=== PATIENT | female | born 1950 | race Caucasian/White ===

== ENCOUNTER 2017-06-28 17:38 | Observation (INO) ==
--- NOTE | 2017-06-28 17:43 | Emergency Department Note ---
Disposition Clinical Impression: Recurrent falls Altered mental status Qualifiers: Altered mental status type: transient alteration of awareness Qualified Code(s) : R40.4 - Transient alteration of awareness TIA (transient ischemic attack) Qualifiers: Transient cerebral ischemia type: other Qualified Code(s): G45.8 - Other transient cerebral ischemic attacks and related syndromes Disposition: Admitted As Inpatient Condition: Fair Referrals: Amy Sandoval WAREHOUSE LOGISTICS COORDINATOR [Primary Care Provider] - Altered Mental Status HPI - General Chief Complaint: ED Fall Stated Complaint: "Brain won't let me speak, alot of falls" Time Seen by Provider: 06/28/17 17:40 Source: patient, family Mode of arrival: private vehicle Limitations: altered mental status, physical limitation Nursing Notes Reviewed: Yes Vital Signs Reviewed: Yes - History of Present Illness HPI Narrative: The patient is brought in by family with history of altered mental status and difficulty with ambulation since yesterday morning. They state that she lives alone and she has been staying with family last because of these problems. She has had episodes of slurring of speech and confusion that have been "coming and going". Currently she is talking well on arrival here and not having significant confusion. She has had 2 falls without any definite injury secondary to difficulty with ambulation. She has not been able to identify any specific area of numbness, weakness or disuse. She has been seen a couple times for left shoulder pain and she states she has pain on the left neck and shoulder but that has been going on for some time. She denies any headache or visual changes. She denies any localized extremity numbness, tingling or weakness. She has not been having chest pain, palpitations or any abnormal shortness of breath. She states she occasionally has periods of shortness of breath. She denies any nausea, vomiting, abdominal pain or diarrhea. She has not had any type of bloody or black stool. She is not having urinary troubles. She denies any episodes like this before. She believes that her symptoms are because of the medicine she is given for her shoulder. The only medication I can see in the medical record was some indomethacin on June 17. She states she finished that 1-2 days ago and then had onset of the symptoms. MD complaint: altered mental status, confusion Onset (ago): day(s) (2) Timing confirmed by: family member Pain Severity: mild, moderate Consistency of Symptoms: waxing and waning Context: history psychiatric disease Associated symptoms: Reports: malaise, weakness, difficulty walking. Denies: chest pain, cough, diaphoresis, fever, chills, headaches, loss of appetite, nausea/vomiting, rash, seizure, shortness of breath, syncope, foul smelling urine, diarrhea, incontinence - Related Data Home Medications Medication Instructions Recorded Confirmed Buspirone HCl [Buspar] 15 mg PO TID 06/27/15 06/28/17 Quetiapine Fumarate [Seroquel] 400 mg PO HS 06/27/15 06/28/17 Amitriptyline HCl 100 mg PO TID 08/28/16 06/28/17 Mirtazapine [Remeron] 45 mg PO HS 08/28/16 06/28/17 risperiDONE [Risperidone] 1 mg PO BID 08/28/16 06/28/17 Fluticasone/Vilanterol [Breo 1 each IH DAILY 06/28/17 06/28/17 Ellipta 100-25 Mcg INH] Pantoprazole Sodium 40 mg PO DAILY 06/28/17 06/28/17 Previous Rx's Medication Instructions Recorded Albuterol Sulfate [Albuterol 2 puff IH Q6HR PRN #1 hfa.aer.ad 02/22/17 Inhaler] Omeprazole 20 mg PO DAILY #14 tablet. 02/22/17 Allergies Allergy/AdvReac Type Severity Reaction Status Date / Time diazepam [From Valium] Allergy Hives Verified 06/17/17 16:19 Penicillins [PCN] Allergy Hives Verified 06/17/17 16:19 All systems ED: reviewed and negative except as stated. Past Medical History - Past Medical History Attestation: Yes The following information was validated with the patient. Source: patient, old records reviewed, obtained from family, nursing notes reviewed Medical history: Reports: COPD, GERD, other Surgical history: Reports: cholecystectomy, herniorrhaphy, other (Vivienne fundoplication, hemorrhoidectomy) Psychiatric history: Reports: anxiety, depression [employer]TER [employer] CHANGER history: Reports: bilateral tubal ligation - Social History Smoking Status: Current every day smoker Smokeless Tobacco Status: No Alcohol use: Reports: none Drug use: Reports: none Physical Exam - General Limitations: no limitations General appearance: alert, in no apparent distress - Head Head exam: atraumatic, normocephalic, normal inspection - Eye Eye exam: Present: normal appearance, PERRL, EOMI. Absent: scleral icterus, conjunctival injection, nystagmus, miosis, mydriasis - ENT ENT exam: normal exam, normal oropharynx, mucous membranes moist - Neck Neck exam: Present: normal inspection, full ROM, trachea midline. Absent: tenderness, lymphadenopathy - Chest Chest inspection: Present: normal inspection, symmetric chest wall rise. Absent : tenderness - Respiratory Respiratory exam: Present: normal lung sounds bilaterally. Absent: respiratory distress, wheezes, prolonged expiratory phase - Cardiovascular Cardiovascular exam: Present: regular rate, normal rhythm, normal heart sounds. Absent: tachycardia - Abdominal Exam Abdominal exam: Present: soft, Non-Tender, normal bowel sounds. Absent: tenderness, distention, guarding, rebound, rigidity - Extremities Exam Extremities exam: Present: normal inspection, normal capillary refill. Absent: full ROM (The patient has limited motion in the left shoulder with complaint of pain with abduction beyond 90 degrees.), tenderness, pedal edema, calf tenderness - Expanded Lower Extremity Exam Neurovascular/Tendon exam: Present: normal capillary refill. Absent: motor deficit, sensory deficit, tendon deficit Gait: other (Patient is unsteady but ambulates with assistance.) - Back Exam Back exam: Present: normal inspection, full ROM. Absent: tenderness, CVA tenderness (R), CVA tenderness (L), vertebral tenderness - Expanded Neurological Exam Patient oriented to: Present: person, place, time Speech: Present: fluid speech Cranial nerves: EOM function (II, III, IV, ): Normal, facial sensation (V): Normal, facial palsy (VII): Normal, gag reflex (IX): Normal, tongue deviation ( XII): Normal Cerebellar function: finger to nose: Normal, heel to romero: Normal Cerebellar function: ataxic gait Motor strength - LUE: 5/5 Motor strength - RUE: 5/5 Motor strength - LLE: 5/5 Motor strength - RLE: 5/5 Upper motor neuron exam: rodney neglect: Absent bilaterally, pronator drift: Absent bilaterally Sensory exam upper extremity: light touch: Normal Sensory exam lower extremity: light touch: Normal DTR: bicep (L): 1+, bicep (R): 1+, patellar (L): 1+, patellar (R): 1+ Coma Scale Eye Opening: Spontaneous Coma Scale Motor Response: Obeys Commands Coma Scale Verbal Response: Oriented Coma Scale Total: 15 - Psychiatric Psychiatric exam: Present: normal mood, flat affect. Absent: agitated, anxious - Skin Skin exam: Present: warm, dry, intact, normal color. Absent: rash, diaphoresis , pallor Course Course Narrative: 1854: Care is discussed with Dr. Prieto. He had like this patient brought in the hospital for observation and carotid Doppler studies in the morning. He would like her started on 81 mg enteric-coated aspirin. Verbal orders have been obtained for her observation period Vital Signs Temperature 98.1 F 06/28/17 17:47 Pulse Rate 88 06/28/17 17:47 Respiratory Rate 18 06/28/17 17:47 Blood Pressure 131/81 06/28/17 17:47 O2 Sat by Pulse Oximetry 96 06/28/17 17:47 Temperature 98.1 F 06/28/17 17:47 Pulse Rate 77 06/28/17 18:59 Respiratory Rate 17 06/28/17 18:59 Blood Pressure 136/56 06/28/17 18:59 O2 Sat by Pulse Oximetry 98 06/28/17 18:59 Oxygen Delivery Oxygen Delivery Room Air Altered Mental Status - Differential Diagnosis Likely: altered mental status, hypoglycemia, hyponatremia, psychiatric disease - Medical Records Medical records reviewed: Yes I reviewed the patient's medical records. - Lab Data Lab results reviewed: Yes I reviewed the patient's lab results. Result diagrams: 06/28/17 18:06 06/28/17 18:06 Lab Results 06/28/17 06/28/17 06/28/17 Range/Units 17:47 18:06 18:06 WBC 8.7 (4.3-11.1) K/mcL RBC 4.53 (3.82-4.97) M/mcL Hgb 14.0 (11.5-15.4) g/dL Hct 42.0 (35.3-44.9) % MCV 92.7 (83.0-100.0) fL MCH 30.9 (28.0-33.3) pg MCHC 33.3 (31.6-35.5) g/dL RDW 13.5 (11.5-14.5) % Plt Count 241 (140-400) K/mcL MPV 9.6 (9.4-12.4) fL Immature Gran % 0.3 (0-4) % Seg Neutrophils % 67.5 % Lymphocytes % 24.6 % Monocytes % 7.5 % Eosinophils % 0.0 % Basophils % 0.1 % Neutrophils # 5.9 (1.6-8.9) K/mcL Lymphocytes # 2.1 (0.6-4.6) K/mcL Monocytes # 0.7 (0.0-1.3) K/mcL Eosinophils # 0.0 (0.0-0.6) K/mcL Basophils # 0.0 (0.0-0.2) K/mcL PT 11.4 (9.4-12.1) Seconds INR 1.1 APTT 33.3 (26.0-36.0) Seconds Sodium (136-145) mEq/L Potassium (3.5-5.1) mEq/L Chloride (98-107) mEq/L Carbon Dioxide (23-29) mEq/L BUN (8-23) mg/dL Creatinine (0.60-1.20) mg/dL Est GFR ( Amer) (> 60) Est GFR (Non-Af Amer) (> 60) BUN/Creatinine Ratio (6-26) Glucose (70-105) mg/dL POC Glucose 81 (58-89) Calculated Osmolality (280-300) Calcium (8.6-10.3) mg/dL Total Bilirubin (0.3-1.0) mg/dL Direct Bilirubin (0.0-0.2) mg/dL Indirect Bilirubin (0.0-1.2) mg/dL AST (13-39) Units/L ALT (7-52) Units/L Alkaline Phosphatase (34-104) Units/L Troponin I (< 0.04) ng/mL Serum Total Protein (6.4-8.9) g/dL Albumin (3.5-5.7) g/dL Globulin (2.4-3.5) g/dL Albumin/Globulin Ratio (1.1-2.2) Ethyl Alcohol (Less than 10) mg/dL 06/28/17 Range/Units 18:06 WBC (4.3-11.1) K/mcL RBC (3.82-4.97) M/mcL Hgb (11.5-15.4) g/dL Hct (35.3-44.9) % MCV (83.0-100.0) fL MCH (28.0-33.3) pg MCHC (31.6-35.5) g/dL RDW (11.5-14.5) % Plt Count (140-400) K/mcL MPV (9.4-12.4) fL Immature Gran % (0-4) % Seg Neutrophils % % Lymphocytes % % Monocytes % % Eosinophils % % Basophils % % Neutrophils # (1.6-8.9) K/mcL Lymphocytes # (0.6-4.6) K/mcL Monocytes # (0.0-1.3) K/mcL Eosinophils # (0.0-0.6) K/mcL Basophils # (0.0-0.2) K/mcL PT (9.4-12.1) Seconds INR APTT (26.0-36.0) Seconds Sodium 138 (136-145) mEq/L Potassium 3.7 (3.5-5.1) mEq/L Chloride 104 (98-107) mEq/L Carbon Dioxide 28 (23-29) mEq/L BUN 11 (8-23) mg/dL Creatinine 0.78 (0.60-1.20) mg/dL Est GFR ( Amer) > 60 (> 60) Est GFR (Non-Af Amer) > 60 (> 60) BUN/Creatinine Ratio 14 (6-26) Glucose 95 (70-105) mg/dL POC Glucose (58-89) Calculated Osmolality 285 (280-300) Calcium 8.6 (8.6-10.3) mg/dL Total Bilirubin 0.5 (0.3-1.0) mg/dL Direct Bilirubin 0.1 (0.0-0.2) mg/dL Indirect Bilirubin 0.4 (0.0-1.2) mg/dL AST 16 (13-39) Units/L ALT 12 (7-52) Units/L Alkaline Phosphatase 116 H (34-104) Units/L Troponin I < 0.03 (< 0.04) ng/mL Serum Total Protein 5.7 L (6.4-8.9) g/dL Albumin 3.7 (3.5-5.7) g/dL Globulin 2.0 L (2.4-3.5) g/dL Albumin/Globulin Ratio 1.9 (1.1-2.2) Ethyl Alcohol < 10 (Less than 10) mg/dL - Radiology Data Radiology results reviewed: Yes I reviewed the patient's radiology results. Single view chest x-ray is performed. This does not demonstrate evidence for infiltrate, effusion, pneumothorax, foreign body or heart failure. The cardiac silhouette is normal. I do not see abnormality to the osseous structures of the chest. This is on my interpretation. CT head is performed. This is reviewed on bone and soft tissue windows. There is no evidence for acute intracranial bleed, shift, mass or edema. Mastoids and sinuses appear normal. There is no fracture evident. This is on my interpretation. Impressions Chest X-Ray 06/28/17 17:51 IMPRESSION: No acute cardiopulmonary disease. D/ / Anthony Elder MD / Anthony Elder MD Interpreting Provider: Anthony Elder MD Head CT 06/28/17 17:51 IMPRESSION: No acute intracranial abnormality. Minimal small vessel ischemic change for D/ / Zak Sierra MD / Zak Sierra MD Interpreting Provider: Zak Sierra MD - EKG Data EKG attestation: Yes I reviewed and interpreted this EKG. EKG shows normal: sinus rhythm, axis, intervals, QRS complexes, ST-T waves Rate: normal (80) [place]/QRS: right axis deviation (Borderline) Interpretation: no acute changes, normal EKG TPA Checklist - LKW: 3-4.5 hrs Add. Warnings/Precautions Patient/family understanding: The patient/family members have been counseled and understood the risk, benefit , and alternatives of treatment.
[2017-06-28 18:12] LABS: Basophils % 0.1 %; Immature Granulocytes % 0.3 % (0-4); Lymphocytes # 2.1 K/mcL (0.6-4.6); Lymphocytes % 24.6 %; Mean Corpuscular HGB Conc 33.3 g/dL (31.6-35.5); Mean Corpuscular Hemoglobin 30.9 pg (28.0-33.3); Mean Corpuscular Volume 92.7 fL (83.0-100.0); Mean Platelet Volume 9.6 fL (9.4-12.4); Monocytes # 0.7 K/mcL (0.0-1.3); Monocytes % 7.5 %; Neutrophils # 5.9 K/mcL (1.6-8.9); Platelet Count 241 K/mcL (140-400); Red Blood Count 4.53 M/mcL (3.82-4.97); Red Cell Distribution Width 13.5 % (11.5-14.5); Segmented Neutrophils % 67.5 %
[2017-06-28 18:20] LABS: INR 1.1; Prothrombin Time 11.4 Seconds (9.4-12.1)
[2017-06-28 18:22] LABS: Activated Partial Thrombo Time 33.3 Seconds (26.0-36.0)
[2017-06-28 18:27] LABS: Alanine Aminotransferase 12 Units/L (7-52); Albumin 3.7 g/dL (3.5-5.7); Albumin/Globulin Ratio 1.9 (1.1-2.2); Alkaline Phosphatase 116 Units/L (34-104); Aspartate Amino Transferase 16 Units/L (13-39); BUN/Creatinine Ratio 14 (6-26); Bilirubin,Direct 0.1 mg/dL (0.0-0.2); Bilirubin,Indirect 0.4 mg/dL (0.0-1.2); Bilirubin,Total 0.5 mg/dL (0.3-1.0); Blood Urea Nitrogen 11 mg/dL (8-23); Calcium 8.6 mg/dL (8.6-10.3); Carbon Dioxide 28 mEq/L (23-29); Chloride 104 mEq/L (98-107); Ethanol < 10 mg/dL (Less than 10); Glucose 95 mg/dL (70-105); Osmolality,Calculated 285 (280-300); Potassium 3.7 mEq/L (3.5-5.1); Sodium 138 mEq/L (136-145); Total Protein 5.7 g/dL (6.4-8.9); eGFR For African Americans > 60 (> 60); eGFR For Non-African Americans > 60 (> 60)
[2017-06-28 18:31] LABS: Troponin I < 0.03 ng/mL (< 0.04)
[2017-06-28] MEDS ORDERED: Aspirin Enteric Coated 81 MG Tablet PO ONE (19:00)
[2017-06-28] MEDS ORDERED: Naloxone 0.4 MG/ML INJ IVP PRN (20:16)
[2017-06-28] MEDS ORDERED: Mirtazapine 15 MG TABLET PO SCH (21:00)
[2017-06-28] MEDS: 0.9 % Sodium Chloride 1,000 ML IVC SCH (22:32)
[2017-06-28] MEDS: risperiDONE 1 MG TABLET PO SCH (22:33)
[2017-06-29] MEDS: 0.9 % Sodium Chloride 1,000 ML IVC SCH (06:20)
[2017-06-29] MEDS ORDERED: NON-FORMULARY MEDICATION 1 EACH EACH (Pantoprazole Sodium [Pantoprazole Sodium] 40 MG) PO SCH (09:00)
[2017-06-29] MEDS: risperiDONE 1 MG TABLET PO SCH (09:38)
--- NOTE | 2017-06-29 11:52 | Internal Med History&Physical ---
Date of Encounter: 06/29/17 Time of Encounter: 11:25 Assessment and Plan (1) TIA (transient ischemic attack) Current visit: Yes Status: Acute Now resolved. She was given aspirin in emergency room. Carotid Doppler studies were ordered. Qualifiers: Transient cerebral ischemia type: other Qualified Code(s): G45.8 - Other transient cerebral ischemic attacks and related syndromes (2) COPD (chronic obstructive pulmonary disease) Current visit: Yes Status: Chronic Continue inhalers Qualifiers: COPD type: unspecified COPD Qualified Code(s): J44.9 - Chronic obstructive pulmonary disease, unspecified (3) Recurrent falls Current visit: Yes Status: Acute We will check orthostatic vital signs. Internal Medicine - H&P: HPI Chief complaint: Falls, altered mental status Admitted From: Emergency Dept Plans for Post Hospital Care: Home History of present illness: Ms. Delacruz is a 66 year old female who came to emergency room after family reported she had altered mental status, slurred speech, and 4 falls in the past week. She states there has been no syncopal or near syncopal episodes and that her falling is due to simply feeling weak generally. There is no focal neurologic deficit. She was evaluated in emergency room and admitted to [facility] floor for observation and ongoing care needs. She states she feels back to her baseline now and wishes to be discharged home. She reports she had increase in amitriptyline dose proximal be 4 weeks ago but no other recent medication changes. She denies alcohol, OTC drug, or recreational drug use. Past Med Surg Social Fam HX - Past Medical History Medical history: COPD, GERD, other Psychiatric history: anxiety, depression - Past Surgical History Surgical History: cholecystectomy, herniorrhaphy, other - Social History Smoking Status: Current every day smoker Packs per day: 1 Smokeless Tobacco Status: No Alcohol use: none Drug use: none Internal Medicine - H&P: Meds Buspirone HCl [Buspar] 15 mg PO TID PRN 06/27/15 [History] Quetiapine Fumarate [Seroquel] 400 mg PO HS 06/27/15 [History] Amitriptyline HCl 100 mg PO BID 08/28/16 [History] Mirtazapine [Remeron] 45 mg PO HS 08/28/16 [History] risperiDONE [Risperidone] 1 mg PO BID 05/22/17 [History] Albuterol Sulfate [Albuterol Inhaler] 2 puff IH Q6HR PRN #1 hfa.aer.ad 02/22/17 [Rx] Omeprazole 20 mg PO DAILY #14 tablet. 02/22/17 [Rx] Fluticasone/Vilanterol [Breo Ellipta 100-25 Mcg INH] 1 each IH DAILY 06/28/17 [ History] Ibuprofen [Motrin] 800 mg PO DAILY PRN 06/28/17 [History] Indomethacin [Indocin] 25 mg PO TID 06/28/17 [History] Pantoprazole Sodium 40 mg PO DAILY 06/28/17 [History] 3 Allergy/AdvReac Type Severity Reaction Status Date / Time diazepam [From Valium] Allergy Hives Verified 06/17/17 16:19 Penicillins [PCN] Allergy Hives Verified 06/17/17 16:19 All Systems PM: A 10-system review of systems was performed and is negative for pertinent findings except as documented above in the HPI. Review of systems: Gen.: She states her weight has been stable the past few months Cardiovascular: She denies AL hypertension heart failure angina DVT or pulmonary embolus Respiratory: She smoked since age 12 up to 2-1/2 packs per day. She claims she has been diagnosed with COPD but has not had PFTs. She does not use home oxygen. GI: She has had cholecystectomy. She denies disorders of her liver or exocrine pancreas : She denies hematuria dysuria or kidney stones Neurologic: As per history of present illness Endocrine: She denies diabetes thyroid disease or hyperlipidemia Hematology/oncology: She denies blood disorders cancers or anemia Psychiatric: She has been diagnosed with anxiety and depression and schizophrenia. She follows at mental health clinic. [place] skeletal: She denies arthritis gout or other bone joint or muscle disorders. - Constitutional Vitals: Temp Pulse Resp BP Pulse Ox 98.4 F 82 18 117/59 93 06/29/17 08:00 06/29/17 08:00 06/29/17 08:00 06/29/17 08:00 06/29/17 08:00 Exam: Gen.: She is a well-developed well-nourished female lying quietly in bed and appears in no acute distress at present time. HEENT: Head is atraumatic and normocephalic. Eyes: EOMI. There is no scleral icterus. Mouth: Mucosa is moist. Neck: Supple and nontender. There is no thyromegaly or adenopathy noted. Heart: Regular without murmurs gallops or ectopics Lungs: No wheezes or crackles are heard. Abdomen: Soft and nontender. No masses or guarding are noted. Extremities: There is no cyanosis edema or clubbing noted. Dorsalis pedis and posttibial pulses are 1-2 over 2 bilaterally. Neurologic: Mental status: She is talkative and a good historian. Cranial nerves: Smile is symmetric. Forehead wrinkles bilaterally. Tongue protrudes midline. EOMI. Motor: There is no pronator drift. Rapid finger movements are symmetric and normal. Cerebellar: Finger to nose is intact bilaterally. Skin: Warm and dry Internal Med - H&P Results - Labs CBC & Chem 7: 06/28/17 18:06 06/28/17 18:06
[2017-06-29] MEDS ORDERED: Aspirin 81 MG TAB.CHEW PO SCH (12:00)
--- NOTE | 2017-06-29 12:07 | Discharge Summary ---
Orders not resulted at time of discharge: Pending orders 06/29/17 00:37 Drug Screen, Urine [UCHEM] Routine Urinalysis Reflex Cult & Micro [URIN] Routine Date of Encounter: 06/29/17 Time of Encounter: 11:25 - Discharge Diagnosis (1) TIA (transient ischemic attack) Priority: Primary Status: Resolved Qualifiers: Transient cerebral ischemia type: other Qualified Code(s): G45.8 - Other transient cerebral ischemic attacks and related syndromes (2) COPD (chronic obstructive pulmonary disease) Priority: Secondary Status: Chronic Qualifiers: COPD type: unspecified COPD Qualified Code(s): J44.9 - Chronic obstructive pulmonary disease, unspecified (3) Recurrent falls Priority: Secondary Status: Acute Hospital course: Ms. Delacruz is a 66 year old female who came to emergency room after family reported she had altered mental status, slurred speech, and 4 falls in the past week. She states there has been no syncopal or near syncopal episodes and that her falling is due to simply feeling weak generally. There is no focal neurologic deficit. She was evaluated in emergency room and admitted to [facility] for observation and ongoing care needs. Initial orders were written by the emergency room physician. I saw her on June 29 and performed a history physical and discharge. She was given aspirin in emergency room for possible TIA. Carotid Doppler studies were ordered. Preliminary report (relayed to me by nursing staff) was no significant stenosis in the right internal carotid but 60-79% stenosis in the left internal carotid. The patient was asymptomatic when I saw her and felt back to baseline. I felt it was reasonable for her to be discharged home on antiplatelet therapy and follow with her PCP within 1 week. She can be referred to vascular surgery by her PCP. If I encouraged her to stop smoking. Orthostatic vital signs showed no pressure drop on standing. - Time Spent with Patient Total time spent providing and/or coordinating discharge services: - Discharge Medications Prescriptions: Aspirin [Lo-Dose Aspirin EC] 81 mg PO DAILY 365 Days tablet.dr Botello Medications: Buspirone HCl [Buspar] 15 mg PO TID PRN 06/27/15 [History] Quetiapine Fumarate [Seroquel] 400 mg PO HS 06/27/15 [History] Amitriptyline HCl 100 mg PO BID 08/28/16 [History] Mirtazapine [Remeron] 45 mg PO HS 08/28/16 [History] risperiDONE [Risperidone] 1 mg PO BID 08/28/16 [History] Albuterol Sulfate [Albuterol Inhaler] 2 puff IH Q6HR PRN #1 hfa.aer.ad 02/22/17 [Rx] Omeprazole 20 mg PO DAILY #14 tablet. 02/22/17 [Rx] Fluticasone/Vilanterol [Breo Ellipta 100-25 Mcg INH] 1 each IH DAILY 06/28/17 [ History] Pantoprazole Sodium 40 mg PO DAILY 06/28/17 [History] Aspirin [Lo-Dose Aspirin EC] 81 mg PO DAILY 365 Days tablet. 06/29/17 [Rx] Allergies/Adverse Reactions: 3 Allergy/AdvReac Type Severity Reaction Status Date / Time diazepam [From Valium] Allergy Hives Verified 06/17/17 16:19 Penicillins [PCN] Allergy Hives Verified 06/17/17 16:19 Date of admission: 06/28/17 20:10 Primary care physician: Amy Sandoval CNP - Constitutional Vitals: Temp Pulse Resp BP Pulse Ox 98.4 F 82 18 117/59 93 06/29/17 08:00 06/29/17 08:00 06/29/17 08:00 06/29/17 08:00 06/29/17 08:00 - Patient Status Disposition: Home, Self-Care Condition: Fair Overall status at discharge: patient is progressing back to baseline - Discharge Instructions Follow Up With: Amy Sandoval CNP [Primary Care Provider] - 1 week Forms: ED Satisfaction Letter - Diet and Activity Activity: resume usual activities as tolerated Diet: advance to your usual diet
[2017-06-29 12:13] VITALS: BP 130/68
--- NOTE | 2017-06-29 15:17 | Electrocardiograph Report ---
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
== END 2017-06-29 13:05 | disposition home or self-care (01) ==
LOC: INPPIK 17:38 → EMEROOPIK 17:38 → INPPIK 20:15
PROVIDERS: ADMIT Internal Medicine; ATTEND Internal Medicine

== ENCOUNTER 2018-08-30 23:24 | Observation (INO) ==
--- NOTE | 2018-08-30 23:36 | Emergency Department Note ---
Disposition Clinical Impression: Chest pain Disposition: Admitted As Inpatient Condition: Good Forms: ED Satisfaction Letter Time of Disposition: 02:30 Chest Pain HPI - General Chief Complaint: ED Chest Pain Stated Complaint: chest pain Time Seen by Provider: 08/30/18 23:34 Source: patient Mode of arrival: ambulatory Limitations: no limitations Vital Signs Reviewed: Yes Nursing Notes Reviewed: Yes - History of Present Illness HPI Narrative: Patient complains of substernal chest pain for approximately 2 hours. She was resting and it started. She has no nausea vomiting no fever or chills she did not break out in a sweat. She has had this before when she is unsure what it was. Pt complaint: chest pain Onset (ago): hour(s) (2 hours) Duration: constant Onset: during rest Pain Location: substernal Severity: none Severity scale (1-10): 8 Quality: tightness Pain Radiation: none Improves with: nothing Worsens with: nothing Treatments prior to arrival chest pain: none - Related Data Home Medications Medication Instructions Recorded Confirmed Buspirone HCl [Buspar] 15 mg PO TID PRN 06/27/15 03/27/18 Quetiapine Fumarate [Seroquel] 400 mg PO HS 06/27/15 03/27/18 Amitriptyline HCl 100 mg PO BID 08/28/16 03/27/18 Mirtazapine [Remeron] 45 mg PO HS 08/28/16 03/27/18 risperiDONE [Risperidone] 1 mg PO BID 08/28/16 03/27/18 Fluticasone/Vilanterol [Breo 1 each IH DAILY 06/28/17 03/27/18 Ellipta 100-25 Mcg INH] Pantoprazole Sodium 40 mg PO DAILY 06/28/17 03/27/18 Previous Rx's Medication Instructions Recorded Albuterol Sulfate [Albuterol 2 puff IH Q6HR PRN #1 hfa.aer.ad 02/22/17 Inhaler] Omeprazole 20 mg PO DAILY #14 tablet. 02/22/17 Aspirin [Lo-Dose Aspirin EC] 81 mg PO DAILY 365 Days tablet. 06/29/17 Albuterol Sulfate [Albuterol 2 puff IH QID #1 inhaler 12/31/17 Inhaler] Albuterol Sulfate [Albuterol 2 puff IH Q6H #1 puff 03/27/18 Inhaler] PredniSONE [Deltasone] 40 mg PO DAILY #10 tablet 03/27/18 levoFLOXacin [Levaquin] 500 mg PO DAILY #7 tablet 03/27/18 Allergies Allergy/AdvReac Type Severity Reaction Status Date / Time diazepam [From Valium] Allergy Hives Verified 03/27/18 00:24 Penicillins [PCN] Allergy Hives Verified 03/27/18 00:24 All systems ED: reviewed and negative except as stated. Review of Systems: As Per HPI Constitutional: Denies: fever, chills, weakness, weight change Eyes: Denies: eye pain, eye discharge, vision change ENT ED: Denies: ear pain, throat pain, dental pain, hearing loss, epistaxis, congestion, dysphagia Cardiovascular: Reports: as per HPI, chest pain (Radiating to her jaw). Denies: palpitations, dyspnea on exertion, edema, syncope Respiratory: Denies: cough, dyspnea, wheezes, hemoptysis, stridor Gastrointestinal: Denies: abdominal pain, nausea, vomiting, diarrhea, constipation, hematemesis, melena, hematochezia Genitourinary: Denies: dysuria, frequency, hematuria, discharge Musculoskeletal: Denies: back pain, neck pain, arthralgia, myalgia Integumentary: Reports: as per HPI Neurological: Denies: headache, weakness, numbness, paresthesias, confusion, abnormal gait, vertigo Psychiatric: Denies: anxiety, depression, suicidal thoughts, homicidal thoughts, auditory hallucinations, visual hallucinations Endocrine: Denies: fatigue Hematological/Lymphatic: Denies: easy bleeding, easy bruising Allergic/Immunologic: Denies: facial swelling, urticaria Chest Pain PMH - Past Medical History Medical history: Reports: no medical history Surgical history: Reports: cholecystectomy, herniorrhaphy, other Psychiatric history: Reports: anxiety, depression [employer] history: Reports: bilateral tubal ligation - Social History Smoking Status: Current every day smoker Alcohol use: Reports: none Drug use: Reports: none Physical Exam - General Limitations: no limitations General appearance: alert, in no apparent distress - Head Head exam: atraumatic, normocephalic, normal inspection - Eye Eye exam: Present: normal appearance, PERRL, EOMI - ENT ENT exam: normal exam, normal oropharynx, mucous membranes moist - Neck Neck exam: Present: normal inspection, full ROM, trachea midline - Chest Chest inspection: Present: normal inspection, symmetric chest wall rise - Respiratory Respiratory exam: Present: normal lung sounds bilaterally - Cardiovascular Cardiovascular exam: Present: regular rate, normal rhythm, normal heart sounds - Abdominal Exam Abdominal exam: Present: soft, Non-Tender. Absent: tenderness, distention, guarding, rebound, rigidity - Extremities Exam Extremities exam: Present: normal inspection, full ROM. Absent: tenderness, pedal edema - Back Exam Back exam: Present: normal inspection, full ROM. Absent: tenderness - Neurological Exam Neurological exam: Present: alert, oriented X3 - Psychiatric Psychiatric exam: Present: normal affect, normal mood - Skin Skin exam: Present: warm, dry, intact, normal color Course Vital Signs Temperature 98.2 F 08/30/18 23:25 Pulse Rate 75 08/30/18 23:25 Respiratory Rate 16 08/30/18 23:25 Blood Pressure 116/85 08/30/18 23:25 O2 Sat by Pulse Oximetry 96 08/30/18 23:25 Temperature 98.2 F 08/30/18 23:25 Pulse Rate 68 08/31/18 01:53 Respiratory Rate 18 08/31/18 01:53 Blood Pressure 109/50 08/31/18 01:53 O2 Sat by Pulse Oximetry 98 08/31/18 01:53 Oxygen Delivery Oxygen Delivery Room Air Chest Pain - MDM Narrative Medical decision making narrative: I reviewed the patient's medication list Case was discussed with Dr. Prieto who is graciously accepted admission - Lab Data Lab results reviewed: Yes I reviewed the patient's lab results. Result diagrams: 08/30/18 23:41 08/30/18 23:41 Lab Results 08/30/18 08/30/18 08/30/18 Range/Units 23:41 23:41 23:41 WBC 8.5 (4.3-11.1) K/mcL RBC 4.29 (3.82-4.97) M/mcL Hgb 13.7 (11.5-15.4) g/dL Hct 40.5 (35.3-44.9) % MCV 94.4 (83.0-100.0) fL MCH 31.9 (28.0-33.3) pg MCHC 33.8 (31.6-35.5) g/dL RDW 13.0 (11.5-14.5) % Plt Count 203 (140-400) K/mcL MPV 10.4 (9.4-12.4) fL Immature Gran % 0.1 (0-4) % Seg Neutrophils % 57.1 % Lymphocytes % 34.4 % Monocytes % 8.4 % Eosinophils % 0.0 % Basophils % 0.0 % Neutrophils # 4.9 (1.6-8.9) K/mcL Lymphocytes # 2.9 (0.6-4.6) K/mcL Monocytes # 0.7 (0.0-1.3) K/mcL Eosinophils # 0.0 (0.0-0.6) K/mcL Basophils # 0.0 (0.0-0.2) K/mcL PT 11.1 (9.4-12.1) Seconds INR 1.0 APTT 36.9 H (26.0-36.0) Seconds Sodium 140 (136-145) mEq/L Potassium 3.9 (3.5-5.1) mEq/L Chloride 102 (98-107) mEq/L Carbon Dioxide 31 H (23-29) mEq/L BUN 13 (8-23) mg/dL Creatinine 0.77 (0.60-1.20) mg/dL Est GFR ( Amer) > 60 (> 60) Est GFR (Non-Af Amer) > 60 (> 60) BUN/Creatinine Ratio 17 (6-26) Glucose 104 (70-105) mg/dL Calculated Osmolality 290 (280-300) Calcium 8.9 (8.6-10.3) mg/dL Troponin I < 0.03 (< 0.04) ng/mL 08/31/18 Range/Units 01:52 WBC (4.3-11.1) K/mcL RBC (3.82-4.97) M/mcL Hgb (11.5-15.4) g/dL Hct (35.3-44.9) % MCV (83.0-100.0) fL MCH (28.0-33.3) pg MCHC (31.6-35.5) g/dL RDW (11.5-14.5) % Plt Count (140-400) K/mcL MPV (9.4-12.4) fL Immature Gran % (0-4) % Seg Neutrophils % % Lymphocytes % % Monocytes % % Eosinophils % % Basophils % % Neutrophils # (1.6-8.9) K/mcL Lymphocytes # (0.6-4.6) K/mcL Monocytes # (0.0-1.3) K/mcL Eosinophils # (0.0-0.6) K/mcL Basophils # (0.0-0.2) K/mcL PT (9.4-12.1) Seconds INR APTT (26.0-36.0) Seconds Sodium (136-145) mEq/L Potassium (3.5-5.1) mEq/L Chloride (98-107) mEq/L Carbon Dioxide (23-29) mEq/L BUN (8-23) mg/dL Creatinine (0.60-1.20) mg/dL Est GFR ( Amer) (> 60) Est GFR (Non-Af Amer) (> 60) BUN/Creatinine Ratio (6-26) Glucose (70-105) mg/dL Calculated Osmolality (280-300) Calcium (8.6-10.3) mg/dL Troponin I < 0.03 (< 0.04) ng/mL - Radiology Data Radiology results reviewed: Yes I reviewed the patient's radiology results. - EKG Data EKG attestation: Yes I reviewed and interpreted this EKG. EKG results narrative: EKG shows a sinus with a rate of 73 bpm intervals 145 ms [place] 109 ms QT interval 387 QTC 427 ms R axis of 90 degrees. There is no acute ischemic changes noted and right axis deviation is noted
[2018-08-30 23:57] LABS: Hematocrit 40.5 % (35.3-44.9); Hemoglobin 13.7 g/dL (11.5-15.4); Immature Granulocytes % 0.1 % (0-4); Lymphocytes # 2.9 K/mcL (0.6-4.6); Lymphocytes % 34.4 %; Mean Corpuscular HGB Conc 33.8 g/dL (31.6-35.5); Mean Corpuscular Hemoglobin 31.9 pg (28.0-33.3); Mean Corpuscular Volume 94.4 fL (83.0-100.0); Mean Platelet Volume 10.4 fL (9.4-12.4); Monocytes # 0.7 K/mcL (0.0-1.3); Monocytes % 8.4 %; Neutrophils # 4.9 K/mcL (1.6-8.9); Platelet Count 203 K/mcL (140-400); Red Blood Count 4.29 M/mcL (3.82-4.97); Segmented Neutrophils % 57.1 %; White Blood Count 8.5 K/mcL (4.3-11.1)
[2018-08-31 00:12] LABS: Prothrombin Time 11.1 Seconds (9.4-12.1)
[2018-08-31 00:15] LABS: Activated Partial Thrombo Time 36.9 Seconds (26.0-36.0)
[2018-08-31 00:23] LABS: Troponin I < 0.03 ng/mL (< 0.04)
[2018-08-31 00:34] LABS: BUN/Creatinine Ratio 17 (6-26); Blood Urea Nitrogen 13 mg/dL (8-23); Calcium 8.9 mg/dL (8.6-10.3); Carbon Dioxide 31 mEq/L (23-29); Chloride 102 mEq/L (98-107); Glucose 104 mg/dL (70-105); Osmolality,Calculated 290 (280-300); Potassium 3.9 mEq/L (3.5-5.1); Sodium 140 mEq/L (136-145); eGFR For African Americans > 60 (> 60); eGFR For Non-African Americans > 60 (> 60)
[2018-08-31] MEDS ORDERED: Naloxone 0.4 MG/ML INJ IVP PRN (03:49)
[2018-08-31] MEDS ORDERED: risperiDONE 1 MG TABLET PO SCH (09:00)
[2018-08-31] MEDS ORDERED: NON-FORMULARY MEDICATION 1 EACH EACH (Pantoprazole Sodium 40 MG) PO SCH (09:00)
[2018-08-31] MEDS ORDERED: Aspirin Enteric Coated 81 MG Tablet PO SCH (09:00)
[2018-08-31] MEDS ORDERED: (Breo Ellipta 100-25 Mcg Inh) IH SCH (10:00)
--- NOTE | 2018-08-31 15:22 | Internal Med History&Physical ---
Date of Encounter: 08/31/18 Time of Encounter: 14:50 Assessment and Plan (1) Chest pain Current visit: Yes Status: Acute Doubt myocardial ischemia from history and physical. Repeat cardiac enzymes were ordered through emergency room. D-dimer will be checked. Qualifiers: Chest pain type: unspecified Qualified Code(s): R07.9 - Chest pain, unspecified (2) COPD (chronic obstructive pulmonary disease) Current visit: No Status: Chronic Room air oximetry will be checked prior to discharge. Continue inhalers. Chest CT will be done to further evaluate. Qualifiers: COPD type: unspecified COPD Qualified Code(s): J44.9 - Chronic obstructive pulmonary disease, unspecified (3) Recurrent falls Current visit: No Status: Chronic Orthostatic vital signs will be checked prior to discharge. Internal Medicine - H&P: HPI Chief complaint: Chest pain Admitted From: Emergency Dept Plans for Post Hospital Care: Home History of present illness: Ms. Delacruz is a 67 year old female who came to emergency room stating she had sudden onset of discomfort in her left epigastric/lower chest area approximately 9 PM while sitting watching television. She reports cough productive of yellow sputum and dyspnea. She denies vomiting diarrhea fevers or chills. She took a sublingual nitroglycerin pill without relief. She came to emergency room and was evaluated was admitted to [facility] floor for ongoing care needs. She states she feels back to her baseline now and has no pain. She denies prev ious similar pain. She denies any chest discomfort while doing her usual activities at home. She denies ME hypertension heart failure angina DVT or pulmonary embolus. Past Med Surg Social Fam HX - Past Medical History Medical history: arthritis, COPD, coronary artery disease, GERD Additional medical history: Tubal ligation, HOLE IN ESOPHAGUS REPAIRED, HERNIA SURG , HAS CLIPS IN ABD from where gb damaged liver, Psychiatric history: anxiety, depression - Past Surgical History Surgical History: appendectomy, cholecystectomy Additional surgical history: Tubal ligation, HOLE IN ESOPHAGUS REPAIRED, HERNIA SURG , HAS CLIPS IN ABD from where gb damaged liver, - Social History Smoking Status: Current every day smoker Packs per day: 1 Smokeless Tobacco Status: No Alcohol use: none Drug use: none Internal Medicine - H&P: Meds Buspirone HCl [Buspar] 15 mg PO TID PRN 06/27/15 [History] Quetiapine Fumarate [Seroquel] 400 mg PO HS 06/27/15 [History] Amitriptyline HCl 100 mg PO BID 08/28/16 [History] Mirtazapine [Remeron] 45 mg PO HS 08/28/16 [History] risperiDONE [Risperidone] 1 mg PO BID 08/28/16 [History] Albuterol Sulfate [Albuterol Inhaler] 2 puff IH Q6HR PRN #1 hfa.aer.jennyfer 02/22/17 [Rx] Omeprazole 20 mg PO DAILY #14 tablet. 02/22/17 [Rx] Fluticasone/Vilanterol [Breo Ellipta 100-25 Mcg INH] 1 each IH DAILY 06/28/17 [History] Pantoprazole Sodium 40 mg PO DAILY 06/28/17 [History] Aspirin [Lo-Dose Aspirin EC] 81 mg PO DAILY 365 Days tablet. 06/29/17 [Rx] Albuterol Sulfate [Albuterol Inhaler] 2 puff IH QID #1 inhaler 12/31/17 [Rx] Albuterol Sulfate [Albuterol Inhaler] 2 puff IH Q6H #1 puff 03/27/18 [Rx] PredniSONE [Deltasone] 40 mg PO DAILY #10 tablet 03/27/18 [Rx] levoFLOXacin [Levaquin] 500 mg PO DAILY #7 tablet 03/27/18 [Rx] Allergy/AdvReac Type Severity Reaction Status Date / Time diazepam [From Valium] Allergy Hives Verified 03/27/18 00:24 Penicillins [PCN] Allergy Hives Verified 03/27/18 00:24 All Systems PM: A 10-system review of systems was performed and is negative for pertinent findings except as documented above in the HPI. Review of systems: Review of systems from her June [address] [facility] hospitalization were reviewed and revised as below. Gen.: She states her weight has been stable the past few months Cardiovascular: As per history of present illness Respiratory: She has smoked since age 12 up to 2-1/2 packs per day. She claims she has been diagnosed with COPD but is not had PFTs. She does not use home oxygen. GI: She has had cholecystectomy. She denies disorders of her liver or exocrine pancreas : She denies hematuria dysuria or kidney stones Neurologic: She had possible TIA June 2017. Carotid Doppler study showed 60- 79% stenosis in the left ICA. The right carotid had minimal plaque. She has been maintained on aspirin without recurrent TIA. She denies large distribution strokes or seizures. Endocrine: She denies diabetes thyroid disease or hyperlipidemia Hematology/oncology: She denies blood disorders cancers or anemia Psychiatric: She has been diagnosed with anxiety depression and schizophrenia. She follows at mental health clinic. [place] skeletal: She denies arthritis gout or other bone joint or muscle disorders. - Constitutional Vitals: Temp Pulse Resp BP Pulse Ox 97.7 F 70 16 128/64 93 08/31/18 14:34 08/31/18 14:34 08/31/18 14:34 08/31/18 14:34 08/31/18 14:34 Exam: Gen.: She is a well-developed lean female resting comfortably in bed who appears in no significant distress. She has occasional moist cough during examination HEENT: Head is atraumatic and normocephalic. Eyes: EOMI. There is no scleral icterus. Mouth: Mucosa is moist. Neck: Supple and nontender. There is no thyromegaly or adenopathy noted. Heart: Regular without murmurs gallops or ectopics Lungs: She has scattered rhonchi bilaterally. There is a pleural friction rub heard in the left lower lung field posteriorly. Abdomen: Soft and nontender. No masses or guarding are noted. Extremities: There is no cyanosis edema or clubbing noted. Dorsalis pedis and posterior tibial pulses are trace to 1+ palpable bilaterally. Neurologic: Mental status: She is talkative and a good historian. Cranial nerv es: Smile is symmetric. Forehead wrinkles bilaterally. Tongue protrudes midline. EOMI. Motor: There is no pronator drift. Cerebellar: Finger to nose is intact bilaterally. Skin: She has scaly dry skin on her legs and arms. Internal Med - H&P Results - Labs CBC & Chem 7: 08/30/18 23:41 08/30/18 23:41 Labs: Short CBC 08/30/18 Range/Units 23:41 WBC 8.5 (4.3-11.1) K/mcL Hgb 13.7 (11.5-15.4) g/dL Hct 40.5 (35.3-44.9) % Plt Count 203 (140-400) K/mcL Neutrophils # 4.9 (1.6-8.9) K/mcL BMP 08/30/18 23:41 Sodium 140 Potassium 3.9 Chloride 102 Carbon Dioxide 31 H BUN 13 Creatinine 0.77 Glucose 104 Calcium 8.9 Cardiac Enzymes 08/30/18 08/31/18 08/31/18 Range/Units 23:41 01:52 05:56 Troponin I < 0.03 < 0.03 < 0.03 (< 0.04) ng/mL 08/31/18 Range/Units 09:45 Troponin I < 0.03 (< 0.04) ng/mL - Impressions ITS Impressions Chest X-Ray 08/30/18 23:32 IMPRESSION: No acute process. D/ / Nilson Mendiola MD / Nilson Mendiola MD Interpreting Provider: Nilson Mendiola MD
--- NOTE | 2018-08-31 18:03 | Discharge Summary ---
Orders not resulted at time of discharge: Pending orders 08/30/18 23:32 ECG 12 lead ECG [ECG] Stat Date of Encounter: 08/31/18 Time of Encounter: 17:55 - Discharge Diagnosis (1) Chest pain Priority: Primary Status: Acute Qualifiers: Chest pain type: unspecified Qualified Code(s): R07.9 - Chest pain, unspecified (2) Lung nodules Priority: Secondary Status: Acute (3) COPD (chronic obstructive pulmonary disease) Priority: Secondary Status: Chronic Qualifiers: COPD type: unspecified COPD Qualified Code(s): J44.9 - Chronic obstructive pulmonary disease, unspecified (4) Recurrent falls Priority: Secondary Status: Chronic Hospital course: Ms. Delacruz is a 67 year old female who came to emergency room stating she had sudden onset of discomfort in her left epigastric/lower chest area approximately 9 PM while sitting watching television. She reports cough productive of yellow sputum and dyspnea. She denies vomiting diarrhea fevers or chills. She took a sublingual nitroglycerin pill without relief. She came to emergency room and was evaluated was admitted to [facility] for ongoing care needs. Initial orders were written by the emergency room physician. I saw her the afternoon of August 31 and performed a history and physical. Repeat cardiac enzymes showed no evidence of myocardial damage. When I saw her I did not think the pain was likely of myocardial ischemic origin. D-dimer returned within normal limits. I felt she likely had a pleuritic etiology contributing to her pain. She will be given a short course of Naprosyn at discharge for the pleuritic type pain. Chest CT was done to further evaluate her chest pain and cough. The chest CT showed bronchial wall thickening and debris within the airways especially in the lower lobes. There was a small focus of airspace disease in the posterior right upper lobe probably representing pneumonia. There was a cavitary spiculated nodular opacity in the posterior right upper lobe possibly inflammatory or infectious but neoplasm should be considered. A 3 mm micronodule was seen in the posterior right lower lobe. I recommend a repeat CT scan be done in 4-6 weeks to follow-up on these abnormalities. On further questioning she states she has oxygen at home but does not use it continuously. I encouraged her to become a nonsmoker. She wished to be discharged home which I felt was reasonable. She will follow with her PCP Berta Mccarthy CNP within 1 week. She will be given antibiotic and probiotic for 4 additional days at discharge. A dose of Ceftin and Zithromax was given prior to discharge. Her PCP can order follow-up CT scan as discussed above. Orthostatic vital signs will be checked prior to discharge. Her PCP can further evaluate her frequent falls. - Time Spent with Patient Total time spent providing and/or coordinating discharge services: - Discharge Medications Prescriptions: New Cefuroxime PO [Ceftin] 500 mg PO Q12HR #8 tablet Lactobacillus [Culturelle] 1 each PO BID #8 cap.sprink Azithromycin [Zithromax] 250 mg PO DAILY #4 tablet Naproxen [Naprosyn] 500 mg PO BID #6 tablet Continued Quetiapine Fumarate [Seroquel] 400 mg PO HS Buspirone HCl [Buspar] 15 mg PO TID PRN PRN Reason: Anxiety Albuterol Sulfate [Albuterol Inhaler] 2 puff IH QID #1 inhaler Amitriptyline HCl 100 mg PO BID risperiDONE [Risperidone] 1 mg PO BID Mirtazapine [Remeron] 45 mg PO HS Albuterol Sulfate [Albuterol Inhaler] 2 puff IH Q6HR PRN #1 hfa.aer.ad PRN Reason: Wheezing Omeprazole 20 mg PO DAILY #14 tablet. Fluticasone/Vilanterol [Breo Ellipta 100-25 Mcg INH] 1 each IH DAILY Pantoprazole Sodium 40 mg PO DAILY Aspirin [Lo-Dose Aspirin EC] 81 mg PO DAILY 365 Days tablet. Albuterol Sulfate [Albuterol Inhaler] 2 puff IH Q6H #1 puff Discontinued levoFLOXacin [Levaquin] 500 mg PO DAILY #7 tablet PredniSONE [Deltasone] 40 mg PO DAILY #10 tablet Home Medications: Buspirone HCl [Buspar] 15 mg PO TID PRN 06/27/15 [History] Quetiapine Fumarate [Seroquel] 400 mg PO HS 06/27/15 [History] Amitriptyline HCl 100 mg PO BID 08/28/16 [History] Mirtazapine [Remeron] 45 mg PO HS 08/28/16 [History] risperiDONE [Risperidone] 1 mg PO BID 08/28/16 [History] Albuterol Sulfate [Albuterol Inhaler] 2 puff IH Q6HR PRN #1 hfa.aer.ad 02/22/17 [Rx] Omeprazole 20 mg PO DAILY #14 tablet. 02/22/17 [Rx] Fluticasone/Vilanterol [Breo Ellipta 100-25 Mcg INH] 1 each IH DAILY 06/28/17 [History] Pantoprazole Sodium 40 mg PO DAILY 06/28/17 [History] Aspirin [Lo-Dose Aspirin EC] 81 mg PO DAILY 365 Days tablet. 06/29/17 [Rx] Albuterol Sulfate [Albuterol Inhaler] 2 puff IH QID #1 inhaler 12/31/17 [Rx] Albuterol Sulfate [Albuterol Inhaler] 2 puff IH Q6H #1 puff 03/27/18 [Rx] Azithromycin [Zithromax] 250 mg PO DAILY #4 tablet 08/31/18 [Rx] Cefuroxime PO [Ceftin] 500 mg PO Q12HR #8 tablet 08/31/18 [Rx] Lactobacillus [Culturelle] 1 each PO BID #8 cap.sprink 08/31/18 [Rx] Naproxen [Naprosyn] 500 mg PO BID #6 tablet 08/31/18 [Rx] Allergies/Adverse Reactions: Allergy/AdvReac Type Severity Reaction Status Date / Time diazepam [From Valium] Allergy Hives Verified 03/27/18 00:24 Penicillins [PCN] Allergy Hives Verified 03/27/18 00:24 Date of admission: 08/31/18 03:06 Primary care physician: Berta Mccarthy Consults: 08/31/18 03:45 Consult to Policy Officer [CONS] Routine Reason for SW Consult: From home with Son; Passport HH; [place] O2; Multiple falls at home with walker - Constitutional Vitals: Temp Pulse Resp BP Pulse Ox 97.7 F 70 16 128/64 93 08/31/18 14:34 08/31/18 14:34 08/31/18 14:34 08/31/18 14:34 08/31/18 14:34 - Patient Status Disposition: Home, Self-Care Condition: Good - Discharge Instructions Follow Up With: Berta Mccarthy, [employer] [Primary Care Provider] - 1 week - Diet and Activity Activity: resume usual activities as tolerated, wear oxygen at all times Diet: advance to your usual diet
[2018-08-31] MEDS ORDERED: Azithromycin 250 MG TABLET PO ONE (18:05)
[2018-08-31 18:12] VITALS: BP 104/70
[2018-08-31] MEDS ORDERED: Mirtazapine 15 MG TABLET PO SCH (21:00)
[2018-09-01] MEDS ORDERED: Cefuroxime PO 250 MG TABLET PO ONE (18:05)
--- NOTE | 2018-09-03 16:01 | Electrocardiograph Report ---
[place] [id number] Test Date: 2018-08-30 Pat Name: Destiney Delacruz Department: EDP-12 Room: [facility] Gender: F Demurrage Man: : 1950 Requested By: Manny Call Order Number: [id number] Reading MD: Paula Beach Measurements Intervals [place] Rate: 73 P: 84 ME: 145 QRS: 90 QRSD: 109 T: 68 QT: 387 QTc: 427 Interpretive Statements Sinus rhythm Right atrial enlargement Borderline right axis deviation Electronically Signed On 09-03-2018 16:00:39 EDT by Paula Beach
== END 2018-08-31 19:09 | disposition home or self-care (01) ==
LOC: EMEROOPIK 23:24 → INPPIK 23:24
PROVIDERS: ADMIT Internal Medicine; ATTEND Internal Medicine